=== PATIENT | female | born 1975 | race Caucasian/White ===

== ENCOUNTER 2016-11-02 21:50 | Inpatient (IN) | payer SELFPAY ==
[~2016-11-02] VITALS: Ht 165.1 cm; Wt 85.3 kg
[2016-11-02 22:10] VITALS: BP 160/96
--- NOTE | 2016-11-02 22:47 | NUR ---
PATIENT BIB ALS TO ER BED 3
[2016-11-02] MEDS ORDERED: LORazepam 2 MG/ML VIAL IVP ONE (22:50)
[2016-11-02] MEDS ORDERED: NACL 0.9% 1,000 ML IV ONE (22:50)
--- NOTE | 2016-11-02 23:01 | NUR ---
Patient being evaluated by physician at bedside.
[2016-11-02 23:09] LABS: BASOPHILS # (AUTO) 0.2 K/uL (0.00-0.22); BASOPHILS % (AUTO) 1.3 % (0.0-2.0); EOSINOPHILS # (AUTO) 0.2 K/uL (0-0.4); EOSINOPHILS % (AUTO) 1.5 % (0.0-4.0); HEMATOCRIT 30.4 % (36-48); HEMOGLOBIN 8.7 g/dL (12.0-16.0); LYMPHOCYTES # (AUTO) 1.7 K/uL (2.5-16.5); LYMPHOCYTES % (AUTO) 12.7 % (20.5-51.1); MEAN CORPUSCULAR HEMOGLOBIN 17 pg (27-31); MEAN CORPUSCULAR HGB CONC 29 g/dL (33-37); MEAN CORPUSCULAR VOLUME 58 fL (80-94); MONOCYTES # (AUTO) 0.8 K/uL (0.8-1.0); MONOCYTES % (AUTO) 6.2 % (1.7-9.3); NEUTROPHILS # (AUTO) 10.3 K/uL (1.8-7.7); NEUTROPHILS % (AUTO) 78.3 % (42.2-75.2); PLATELET COUNT (AUTO) 283 K/uL (140-450); RED BLOOD CELL COUNT(AUTO) 5.24 MIL/uL (4.20-5.40); RED CELL DISTRIBUTION WIDTH 19.4 % (11.6-13.7); WHITE BLOOD COUNT (AUTO) 13.2 K/uL (4.8-10.8)
[2016-11-02 23:24] LABS: INR 1.1 (0.8-1.2); PARTIAL THROMBOPLASTIN TIME 22.2 secs (22-35.6); PROTHROMBIN TIME 10.4 secs (10.8-13.4)
[2016-11-02 23:27] LABS: ALBUMIN 3.6 g/dL (3.4-5.0); ANION GAP 9.6 (8-16); CALCIUM 8.8 mg/dL (8.5-10.1); CARBON DIOXIDE 30.5 mmol/L (21-32); CREATININE 0.6 mg/dL (0.6-1.3); POTASSIUM 3.1 mmol/L (3.5-5.1); TOTAL BILIRUBIN 0.3 mg/dL (0.0-1.0); TOTAL PROTEIN, SERUM 7.9 g/dL (6.4-8.2)
[2016-11-02] MEDS ORDERED: POTASSIUM CHLORIDE 10 MEQ TABER PO ONE (23:30)
[2016-11-02 23:39] VITALS: BP 122/79
[2016-11-03] VITALS (7 sets, daily range): BP systolic 149–180; BP diastolic 86–110
[2016-11-03] MEDS ORDERED: ONDANSETRON 4 MG/2 ML VIAL IVP PRN (00:10)
[2016-11-03] MEDS ORDERED: LORazepam 1 MG TAB PO PRN (00:10)
--- NOTE | 2016-11-03 00:51 | NUR ---
PT ARRIVED ON UNIT IN STABLE CONDITION. NO SOB. PT IS AOX4, AMBULATORY WITH ASSIST. PT CRYING, ANXIOUS. AND COUSIN AT BEDSIDE. BP 180/92, OTHER VS WNL, WILL PAGE MD TO MAKE AWARE OF BP. IV TO LT AC 20G PATENT, ASYMPTOMATIC, INTACT, IVF RUNNING. SKIN IS INTACT. ORIENTED PT TO ROOM AND UNIT. PLAN OF CARE DISCUSSED WITH PT. SAFETY MEASURES IN PLACE. CALL LIGHT WITHIN REACH. WILL CONTINUE TO MONITOR.
[2016-11-03] MEDS: NACL 0.9% 1,000 ML IV SCH ×3 (01:00→19:22)
--- NOTE | 2016-11-03 01:00 | NUR ---
Patient will be admitted to care of DR SWANSON. Admited to TELEMETRY. Will go to room 122B. Belongings list completed. Report to JOHANNA KRISHNAN.
--- NOTE | 2016-11-03 01:09 | NUR ---
PAGED MD REMY. WAITING FOR CALL BACK.
--- NOTE | 2016-11-03 01:12 | NUR ---
SPOKE WITH MD SANDRITA MD MADE AWARE OF BP, STATED SHE WILL PUT IN ORDERS FOR BP MED AND IS GOING TO START PT ON HEPARIN DRIP. WILL F/U WITH NEW ORDERS.
[2016-11-03] MEDS ORDERED: HEPARIN PER PHARMACY MC PRN (01:15)
[2016-11-03] MEDS ORDERED: METOPROLOL 25 MG TAB PO ONE (01:15)
[2016-11-03] MEDS ORDERED: hePARIN / DEXT 5% PREMIX 250 ML IV SCH (01:15)
--- NOTE | 2016-11-03 01:37 | NUR ---
ADMINISTERED ONE TIME DOSE OF LOPRESSOR ORDERED FOR ELEVATED BP, PT TOLERATED MED WELL. STARTED NEW IV TO RT AC 22G FOR HEPARIN DRIP. IV PATENT, ASYMPTOMATIC, INTACT, SALINE LOCKED. PT TOLERATED WELL.
[2016-11-03 02:03] LABS: CHOL/HDL RATIO 3.8 (1-4.5)
[2016-11-03] MEDS: hePARIN / DEXT 5% PREMIX 250 ML IV SCH ×2 (02:06→11:02)
--- NOTE | 2016-11-03 02:06 | NUR ---
GAVE PT HEPARIN BOLUS AND STARTED HEPARIN DRIP PER PROTOCOL, PT TOLERATED WELL.
[2016-11-03 02:15] LABS: FREE T4 (FREE THYROXINE) 0.95 ng/dL (0.76-1.46); MAGNESIUM 2.3 mg/dL (1.8-2.4); PHOSPHORUS 3.1 mg/dL (2.5-4.9); THYROID STIMULATING HORMONE 1.66 uIU/mL (0.34-3.76)
--- NOTE | 2016-11-03 04:18 | NUR ---
VS STABLE ON ROOM AIR. NO SOB, NO SIGNS OF DISTRESS. IV SITES ASYMPTOMATIC, INTACT, PATENT, IVF AND HEPARIN RUNNING. PT DENIES PAIN OR ANXIETY AT THIS TIME. PLAN OF CARE DISCUSSED WITH PT. SAFETY MEASURES IN PLACE. CALL LIGHT WITHIN REACH. WILL CONTINUE TO MONITOR.
[2016-11-03 07:04] LABS: ANION GAP 9.9 (8-16); CALCIUM 8.4 mg/dL (8.5-10.1); CARBON DIOXIDE 27.3 mmol/L (21-32); CREATININE 0.5 mg/dL (0.6-1.3); POTASSIUM 3.2 mmol/L (3.5-5.1)
[2016-11-03 07:07] LABS: MAGNESIUM 2.2 mg/dL (1.8-2.4)
--- NOTE | 2016-11-03 07:37 | NUR ---
ENDORSED PT IN STABLE CONDITION TO EULOGIO DIAZ. ALL NEEDS HAVE BEEN MET AT THIS TIME.
[2016-11-03 07:38] LABS: BASOPHILS # (AUTO) 0.1 K/uL (0.00-0.22); BASOPHILS % (AUTO) 1.1 % (0.0-2.0); EOSINOPHILS # (AUTO) 0.2 K/uL (0-0.4); EOSINOPHILS % (AUTO) 2.4 % (0.0-4.0); HEMATOCRIT 29.3 % (36-48); HEMOGLOBIN 8.4 g/dL (12.0-16.0); LYMPHOCYTES # (AUTO) 1.9 K/uL (2.5-16.5); LYMPHOCYTES % (AUTO) 22.2 % (20.5-51.1); MEAN CORPUSCULAR HEMOGLOBIN 17 pg (27-31); MEAN CORPUSCULAR HGB CONC 29 g/dL (33-37); MEAN CORPUSCULAR VOLUME 58 fL (80-94); MONOCYTES # (AUTO) 0.8 K/uL (0.8-1.0); MONOCYTES % (AUTO) 9.2 % (1.7-9.3); NEUTROPHILS # (AUTO) 5.6 K/uL (1.8-7.7); NEUTROPHILS % (AUTO) 65.1 % (42.2-75.2); PLATELET COUNT (AUTO) 253 K/uL (140-450); RED BLOOD CELL COUNT(AUTO) 5.03 MIL/uL (4.20-5.40); RED CELL DISTRIBUTION WIDTH 19.4 % (11.6-13.7); WHITE BLOOD COUNT (AUTO) 8.6 K/uL (4.8-10.8)
--- NOTE | 2016-11-03 07:38 | NUR ---
PT AWAKE AND ALERT, NO SIGNS OF ACUTE DISTRESS, NO COMPLAINT OF CHEST PAIN, BREATHING EVEN AND UNLABORED BILATERALLY, BOWEL SOUNDS ACTIVE IN ALL 4 QUADRANTS, AMBULATE WITH ASSIST, SKIN INTACT, BOWEL AND BLADDER CONTINENCE, IV PATIENT AND INFUSING WITHOUT REDNESS, BED IN LOW POSITION WITH BILATERAL HALF SIDE RAILS UP, CALL LIGHT WITHIN REACH.
[2016-11-03 08:08] LABS: ANISOCYTOSIS 1+; HYPOCHROMASIA 1+; OVALOCYTES 1+; POIKILOCYTOSIS 1+; TARGET CELLS 1+; TEAR DROP CELLS 1+
[2016-11-03 08:09] LABS: STOMATOCYTES 1+
[2016-11-03] MEDS: DOCUSATE SODIUM 100 MG GELCAP PO SCH (08:21)
[2016-11-03] MEDS: ASPIRIN 81 MG TAB.CHEW PO SCH (08:22)
[2016-11-03] MEDS: METOPROLOL 25 MG TAB PO SCH ×2 (08:22→20:38)
[2016-11-03] MEDS: LISINOPRIL 5 MG TAB PO SCH (08:22)
[2016-11-03] MEDS: ACETAMINOPHEN 325 MG TAB PO PRN (08:23)
--- NOTE | 2016-11-03 08:36 | NUR ---
PATIENT HAS BEEN SCREENED AND CATEGORIZED MODERATE RISK. PATIENT WILL BE SEEN WITHIN 3-5 DAYS OF ADMISSION. 11/05/16 TO 11/07/[address]
[2016-11-03] MEDS ORDERED: POTASSIUM CHLORIDE 40 MEQ, LIDOCAINE 1% 25 MG in NACL 0.9% 250 ML IV SCH (09:00)
--- NOTE | 2016-11-03 14:54 | NUR ---
CALLED AND LEFT MESSAGE WITH DR. HERRERA'S PAGER REGARDING NEW CONSULT. FAXED FACE SHEET.
--- NOTE | 2016-11-03 15:24 | NUR ---
RECEIVED NEW TROPONIN 0.140 PER FROYLA.
--- NOTE | 2016-11-03 15:30 | NUR ---
HEPARIN DRIP DISCONTINUED ORDERED.
[2016-11-03] MEDS: HYDROcodone/APAP 5/325 MG 1 TAB TAB PO PRN (17:26)
--- NOTE | 2016-11-03 19:25 | NUR ---
RECEIVED FROM AM RN IN BED WITH SON AND VISITING. ABLE TO VERBALIZE NEEDS WELL. PT. CRYING. ENCOURAGED TO RELAX AND REST. TELEMETRY MONITORING. NO SOB. DENIES PAIN AT THIS TIME. DX. CHEST PAIN. IVF SITE LEFT AND RIGHT ARMS INTACT AND NO INFILTRATION NOTED. CALL LIGHT WITH IN REACH AND CARE PLAN FOR THE NIGHT DISCUSSED WITH THEM.
--- NOTE | 2016-11-03 19:37 | NUR ---
PT ALERT AND AWAKE, NO SIGNS OF ACUTE DISTRESS, BED IN LOW POSITION WITH BILATERAL HALF SIDE RAILS UP, CALL LIGHT WITHIN REACH, ENDORSED TO CARAMEL CANDY MAKER HELPER NURSE FOR CONTINUITY OF CARE.
[2016-11-03] MEDS ORDERED: SIMVASTATIN 10 MG TAB PO SCH (21:00)
--- NOTE | 2016-11-03 22:00 | NUR ---
PROVIDED WITH HAM SANDWICH REQUESTED/TURKEY RT UNABLE TO EAT HER DINNER. ATE MOST OF THE SANDWICH. SON AND SPOUSE STILL HERE WATCHING OVER HER. TELEMETRY MONITORING.
--- NOTE | 2016-11-03 23:07 | NUR ---
SLEEPING AT THIS TIME. AT BEDSIDE. NO SOB. DENIES ANY PAIN AT THIS TIME. TELEMETRY MONITORING.
[2016-11-04 00:45] VITALS: BP 152/91
--- NOTE | 2016-11-04 00:49 | NUR ---
SPOPUSE LEFT AND FEMALE COUSIN IN HERE TO WATCH OVER HER. CALL LIGHT WITH IN REACH.
--- NOTE | 2016-11-04 01:00 | NUR ---
PT.S COUSIN LEFT. NO COMPLAINTS DONE. CALL LIGHT WITH IN REACH. PROVIDED WITH JUICE. ABLE TO VERBALIZE SIMPLE NEEDS.
--- NOTE | 2016-11-04 02:00 | NUR ---
PT. AWAKE AT THIS TIME AND REQUESTED FOR PAIN RELIEVER RT HEADACHE. MEDICATED REQUESTED. ABLE TO USE CALL LIGHT FOR HELP.
[2016-11-04] MEDS: HYDROcodone/APAP 5/325 MG 1 TAB TAB PO PRN (02:01)
--- NOTE | 2016-11-04 03:00 | NUR ---
PT. SLEEPING. MONITORED FREQUENTLY. CALL LIGHT WITH IN REACH.
[2016-11-04 04:29] VITALS: BP 148/86
--- NOTE | 2016-11-04 04:44 | NUR ---
AWAKE AT THIS TIME. USING CELL PHONE . NO COMPLAINTS DONE. ABLE TO VERBALIZE NEEDS WELL. IVF SITE NO INFILTRATION , TELEMETRY MONITORING.
--- NOTE | 2016-11-04 07:22 | NUR ---
ENDORSED TO THE NEXT RN FOR CONTINUITY OF CARE. NO COMPLAINTS DONE. TELEMETRY MONITORING.
--- NOTE | 2016-11-04 07:23 | NUR ---
PT AWAKE AND ALERT AND ORIENTED X4, PERRLA, NO SIGNS OF ACUTE DISTRESS, BREATHING EVEN AND UNLABORED BILATERALLY, BOWEL SOUNDS ACTIVE IN ALL FOUR QUADRANTS, NO COMPLAINTS OF CHEST PAIN, AMBULATORY WITH ASSIST, SKIN INTACT, BOWEL AND BLADDER CONTINENCE, COMPLAINT OF PAIN 8/10 IN HEAD, TELE MONITOR IN PLACE, BED IN LOW POSITION WITH ALARM ON AND BILATERAL HALF SIDE RAILS UP, CALL LIGHT WITHIN REACH.
[2016-11-04 08:00] VITALS: BP 151/95
[2016-11-04] MEDS: ACETAMINOPHEN 325 MG TAB PO PRN ×2 (08:28→14:48)
[2016-11-04] MEDS: DOCUSATE SODIUM 100 MG GELCAP PO SCH (09:06)
[2016-11-04] MEDS: LISINOPRIL 5 MG TAB PO SCH (09:07)
[2016-11-04] MEDS: ASPIRIN 81 MG TAB.CHEW PO SCH (09:07)
[2016-11-04] MEDS: METOPROLOL 25 MG TAB PO SCH (09:07)
[2016-11-04] MEDS: NACL 0.9% 1,000 ML IV SCH (09:12)
[2016-11-04 11:42] VITALS: BP 137/85
[2016-11-04] MEDS ORDERED: FERROUS SULFATE 325 MG TABEC PO SCH (12:00)
[2016-11-04] MEDS ORDERED: LOVA20TA8 PO (12:16)
[2016-11-04] MEDS ORDERED: ASPI81CT27 PO (12:16)
[2016-11-04] MEDS ORDERED: ASCO-166 PO (12:16)
[2016-11-04] MEDS ORDERED: FERR-18 PO (12:16)
[2016-11-04] MEDS ORDERED: LISI-424 PO (12:16)
[2016-11-04] MEDS ORDERED: CARV6.25 PO (12:16)
[2016-11-04] MEDS ORDERED: FAMO-90 PO (12:33)
--- NOTE | 2016-11-04 13:10 | NUR ---
IZABEL BANG(ADMISSIONS)FROM [facility] STATED TO RYAN([id number]) Addendum: 11/04/16 at 1614 by Nikki Godoy RN DISREGARD ABOVE NOTES, WRONG PT.
--- NOTE | 2016-11-04 13:10 | NUR ---
DR. HERRERA HERE TO SEE PT TODAY.
[2016-11-04 15:07] LABS: TRANSFERRIN 317 mg/dL (200-370)
--- NOTE | 2016-11-04 15:25 | NUR ---
PT SEEN BY DR. COLLIER.
--- NOTE | 2016-11-04 15:40 | NUR ---
PT ALERT AND AWAKE, NO SIGNS OF ACUTE DISTRESS, REMOVED TELE MONITOR AND IV, CUT OFF WRIST BANDS. EDUCATED PATIENT ABOUT NEW PRESCRIPTIONS AND TO FOLLOW UP WITH PSYCHOLOGIST AND SUPPLY CHAIN ASSOCIATE WITHIN 3-5 DAYS, PATIENT VERBALIZED UNDERSTANDING. PT ESCORTED VIA WHEELCHAIR TO D/C HOME WITH FAMILY VIA PRIVATE AUTO.
[2016-11-05] MEDS ORDERED: ASCORBIC ACID 500 MG TAB PO SCH (09:00)
== END 2016-11-04 15:40 | disposition home or self-care (01) | DRG 391 ==
LOC: MED 21:50 → MTU 23:52
PROVIDERS: ADMIT Student in an Organized Health Care Education/Training Program; ATTEND Student in an Organized Health Care Education/Training Program
DX: K21.9 Gastro-esophageal reflux disease without esophagitis (principal); I21.4 Non-ST elevation (NSTEMI) myocardial infarction; F32.1 Major depressive disorder, single episode, moderate; I20.1 Angina pectoris with documented spasm; F32.9 Major depressive disorder, single episode, unspecified; E78.5 Hyperlipidemia, unspecified; F41.0 Panic disorder [episodic paroxysmal anxiety]; I11.9 Hypertensive heart disease without heart failure; E87.6 Hypokalemia; F43.9 Reaction to severe stress, unspecified; D50.9 Iron deficiency anemia, unspecified; F41.9 Anxiety disorder, unspecified; Z88.0 Allergy status to penicillin
CPT/HCPCS: 36415; 71010; 80048; 80053; 82728; 83036; 83540; 83690; 83735; 83880; 84100; 84439; 84443; 84484; 85025; 85045; 85610; 85730; 87081; 93005; 96374; 99285; J1644; J2001; J2060; J2405; J3480; J7030; Q0092